=== PATIENT | male | born 1985 | race Two or more races ===

== ENCOUNTER 2020-06-18 19:24 | Emergency (ER) | payer MEDICAID ==
[~2020-06-18] VITALS: Ht 182.9 cm; Wt 83.9 kg
--- NOTE | 2020-06-18 19:42 | NUR ---
MD Castillo in patient's room to do MSE.
[2020-06-18] MEDS ORDERED: KETOROLAC TROMETHAMINE 60 MG INJ IM ONE ×2 (20:00→20:10)
[2020-06-18] MEDS ORDERED: MORPHINE SULFATE 4 MG/1 ML DISP.SYRIN IM ONE (20:00)
[2020-06-18] MEDS ORDERED: MORPHINE SULFATE 4 MG/1 ML DISP.SYRIN ONE (20:09)
--- NOTE | 2020-06-18 20:35 | NUR ---
Patient verbalizes great improvement in pain from 10/10 to 4/10 with medications given to him.
[2020-06-18] MEDS ORDERED: CYCL10TA9 PO (20:56)
[2020-06-18] MEDS ORDERED: NAPR-1164 PO (20:56)
[2020-06-18 21:05] VITALS: BP 122/84
--- NOTE | 2020-06-18 21:05 | NUR ---
Patient discharged to home in stable condition. Written and verbal after care instructions given. Patient verbalizes understanding of instructions. Stressed follow up or return to ER for worsening s/s. Patient ambulates with steady gait, V/S stable, and left with all personal belongings.
== END 2020-06-18 21:05 | disposition home or self-care (01) ==
LOC: ER 19:29
DX: M54.5 Low back pain (principal); M79.602 Pain in left arm; R20.0 Anesthesia of skin
CPT/HCPCS: 96372 ×2; 99284; J1885; J2270; A4663